=== PATIENT | female | born 1970 | race Two or more races ===

== ENCOUNTER → 2017-03-09 | Day surgery (SDC) | payer OTHER ==
[~2017-03-09] MED LIST: CALCIUM 500+D1 EACH PO; HYDROXYCHLOROQ200 MG PO; LIDOCAINE HCL 2% LOCAL INJ 5 ML SDV VIAL INJ ONE; MIDAZOLAM HCL 2 MG/2 ML VIAL ONE; PROPOFOL IV EMULSION 10 MG/ML 50 ML VIAL ONE; VITAMIN B-121000 MCG PO
== END | disposition home or self-care (01) ==
LOC: OR 08:31
PROVIDERS: ATTEND Internal Medicine Gastroenterology
DX: K50.90 Crohn's disease, unspecified, without complications (principal); D12.0 Benign neoplasm of cecum; D12.4 Benign neoplasm of descending colon; K57.30 Diverticulosis of large intestine without perforation or abscess without bleeding; K64.2 Third degree hemorrhoids; M32.9 Systemic lupus erythematosus, unspecified; B18.1 Chronic viral hepatitis B without delta-agent; R03.0 Elevated blood-pressure reading, without diagnosis of hypertension; F17.210 Nicotine dependence, cigarettes, uncomplicated
CPT/HCPCS: 45384; 81025; J2001; J2250

== ENCOUNTER → 2017-05-07 | Outpatient (CLI) | payer OTHER ==
[~2017-05-07] MED LIST changes: -LIDOCAINE HCL 2% LOCAL INJ 5 ML SDV VIAL INJ ONE; -MIDAZOLAM HCL 2 MG/2 ML VIAL ONE; -PROPOFOL IV EMULSION 10 MG/ML 50 ML VIAL ONE
--- NOTE | 2017-05-07 14:55 | Diagnostic Imaging Report ---
PROCEDURE: Frontal and lateral views of the chest. COMPARISON: None. INDICATIONS: ANNUAL CHECK UP AND IS A SMOKER FINDINGS: Lines/tubes: None. Lungs: The lungs are well inflated and clear. There is no evidence of pneumonia or pulmonary edema. Pleura: There is no pleural effusion or pneumothorax. Heart and mediastinum: The heart and the mediastinum are normal. Bones: No acute bony abnormality. Degenerative changes of the spine. IMPRESSION: 1. No acute cardiopulmonary disease. Dictated by: Juan Antonio Clement M.D. on 05/07/2017 at 14:55 Electronically approved by: Juan Antonio Clement M.D. on 05/07/2017 at 14:55
== END ==
LOC: RAD 14:19
PROVIDERS: ATTEND Internal Medicine
DX: Z00.00 Encounter for general adult medical examination without abnormal findings (principal)
CPT/HCPCS: 71046

== ENCOUNTER → 2017-10-29 | Outpatient (CLI) | payer OTHER | LOC: MAMMO 09:46 | PROVIDERS: ATTEND Obstetrics & Gynecology Obstetrics | DX: Z12.31 Encounter for screening mammogram for malignant neoplasm of breast (principal) | CPT/HCPCS: 77067 ==

== ENCOUNTER → 2018-03-22 | Day surgery (SDC) | payer OTHER ==
[~2018-03-22] MED LIST changes: +CALCIUM PO; +FENTANYL CITRATE/PF 100MCG/2 ML INJ ONE; +LISINOPRIL2.5 MG PO; +MIDAZOLAM HCL 2 MG/2 ML VIAL ONE; +ONDANSETRON HCL INJ 2MG/ML 2ML 2 MG/ML VIAL ONE; +PROPOFOL IV EMULSION 10 MG/ML 50 ML VIAL ONE; +VITAMIN D31000 UNI1 PO
--- OUTSIDE RECORDS SUMMARY | 2018-03-22 09:09 | XMS REPORT | Summary of Care ---
Author Author [facility] Outpatient Imaging [facility] Outpatient [facility] Address Unknown Phone Unavailable Encounter HQ Encntr_alias(FIN) [id number] Date(s): 05/28/15 - 05/28/15 [facility] Outpatient Imaging [facility] [address] [address] [facility], [address] [phone] Discharge Disposition: Home Attending Physician: Josh Lujan DDS, MD Vital Signs No data available for this section Problem List No data available for this section Allergies, Adverse Reactions, Alerts No data available for this section Medications No data available for this section Results No data available for this section Immunizations No data available for this section Procedures No data available for this section Social History No data available for this section Assessment and Plan No data available for this section
--- OUTSIDE RECORDS SUMMARY | 2018-03-22 09:10 | XMS REPORT | Summary of Care ---
Author Author [facility] Organization [facility] Address Unknown Phone Unavailable Encounter HQ Bellелена(FIN) [id number] Date(s): 05/31/17 - 05/31/17 [facility] [address] [place] [address]- Encounter Diagnosis Peripheral vascular disease, unspecified (Final) - 06/07/17 Other specified disorders of bone density and structure, other site (Final) - Other specified disorders of bone density and structure, left thigh (Final) - Occlusion and stenosis of bilateral carotid arteries (Final) - Discharge Disposition: Home or Self Care Attending Physician: Gomez Stone MD Referring Physician: Gomez Stone MD Vital Signs Most recent to 1 oldest [Reference Range]: Height 160.02 cm (05/31/17 10:29 AM) Weight 58.636 kg (05/31/17 10:29 AM) Body Mass Index 22.9 m2 (05/31/17 10:29 AM) Problem List No data available for this section Allergies, Adverse Reactions, Alerts Substance Reaction Severity Status NKDA Active Medications No data available for this section Results No data available for this section Immunizations No data available for this section Procedures No data available for this section Social History No data available for this section Assessment and Plan No data available for this section
--- OUTSIDE RECORDS SUMMARY | 2018-03-22 09:10 | XMS REPORT | Summary of Care ---
Author Author [facility] Out[facility] - [place] Organization [facility] [place] Address Unknown Phone Unavailable Encounter HQ Encntr_alibilly(FIN) [id number] Date(s): 01/15/17 - 01/15/17 [facility] Outpatient [facility] - [place] [address] [phone] Discharge Disposition: Home or Self Care Attending Physician: Manjeet Andres MD Vital Signs No data available for [...]
--- OUTSIDE RECORDS SUMMARY | 2018-03-22 09:10 | XMS REPORT | Summary of Care ---
Author Author [facility] Organization [facility] Address Unknown Phone Unavailable Encounter HQ Blelелена(FIN) [id number] Date(s): 05/31/17 - 05/31/17 [facility] [address] [place] [address]- Encounter Diagnosis Peripheral vascular disease, unspecified (Final) [...]
--- OUTSIDE RECORDS SUMMARY | 2018-03-22 09:10 | XMS REPORT | Summary of Care ---
Author Author [facility] Outpatient Imaging [facility] Address Unknown Phone Unavailable Encounter HQ Bellevelina_tristanbilly(FIN) [id number] Date(s): 08/13/17 - 08/13/17 [facility] Outpatient Imaging [facility] [address] [address] [facility], [address] [place], [place] [address] [phone] Discharge Disposition: Home or Self Care Attending [...]
--- OUTSIDE RECORDS SUMMARY | 2018-03-22 09:10 | XMS REPORT ---
Author Author [facility] Address Unknown Phone Unavailable Care Team Providers Care Flap Presser Name Role Phone Rand LESLIE Unavailable Unavailable GABRIELA EAST Unavailable Unavailable Payers Payer Name Policy Type Policy Number Effective Date Expiration Date Problems This patient has no known problems. Allergies, Adverse Reactions, Alerts Allergy Name Allergy Type Status Severity Reaction(s) Onset Date Inactive Date Treating Clinician Comments No Known Drug Intolerances DA Active U 2002-07-27 00:00:00 No Known Contrast Allergies DA Active U 2002-07-27 00:00:00 No Known Drug Allergies DA Active U 2002-07-27 00:00:00 No Known Food Allergies DA Active U 2002-07-27 00:00:00 No Known Other Allergies DA Active U 2002-07-27 00:00:00 Medications This patient has no known medications. Results Test Description Test Time Test Comments Text Results Atomic Results Result Comments MAMMOGRAPHY DIGITAL SCR BILAT 2017-10-29 10:25:00 [place] [address] Patient Name: MINA MACIEL MR #: [id number] : 1970 Age/Sex: 47/F Req #: [id number] Adm Physician: Ordered by: YONI LESLIE M.D. Report #: [id number] Location: MAMMO Room/Bed: Procedure: MG/MAMMOGRAPHY DIGITAL SCR BILAT Exam Date: 10/29/17 Exam Time: 0955 REPORT STATUS: Signed #[id number] - MGSCRBIL #BILATERAL DIGITAL SCREENING MAMMOGRAM WITH CAD: 10/29/2017 CLINICAL: Routine screening. Comparison is made to exams dated: 10/05/2016 mammogram and 09/23/2015 mammogram - [facility]. The tissue of both breasts is extremely dense, which lowers the sensitivity of mammography. Current study was also evaluated with a Computer Aided Detection (CAD) system. No significant masses, calcifications, or other findings are seen in either breast. There has been no significant interval change. IMPRESSION: BENIGN There is no mammographic evidence of malignancy. A 1 year screening mammogram is recommended. The patient will be notified by letter of the results. Yenifer young/jeff:11/02/2017 10:37:39 Bookbinder Apprentice: Alethea CASAS(R)(M), [facility] letter sent: Normal Exam Mammogram BI-RADS: 2 Benign Dictated By: YENIFER PERLA MD 1037 Transcribed By: JEFF on 11/02/17 1037 COPY TO: YONI LESLIE M.D. CHEST 2 VIEWS [place] [address] Patient Name: MINA MACIEL MR #: [id number] : 1970 Age/Sex: 46/F Req #: [id number] Adm Physician: Ordered by: GABRIELA EAST MD Report #: [id number] Location: RAD Room/Bed: Procedure: [id number] DX/CHEST 2 VIEWS Exam Date: 05/07/17 Exam Time: 1435 REPORT STATUS: Signed PROCEDURE: Frontal and lateral views of the chest. COMPARISON: None. INDICATIONS: ANNUAL CHECK UP AND IS A SMOKER FINDINGS: Lines/tubes: None. Lungs: The lungs are well inflated and clear. There is no evidence of pneumonia or pulmonary edema. Pleura: There is no pleural effusion or pneumothorax. Heart and mediastinum: The heart and the mediastinum are normal. Bones: No acute bony abnormality. Degenerative changes of the spine. IMPRESSION: 1. No acute cardiopulmonary disease. Dictated by: Juan Antonio Peña M.D. on 05/07/2017 at 14:55 Electronically approved by: Juan Antonio Peña M.D. on 05/07/2017 at 14:55 Dictated By: JUAN ANTONIO PEÑA MD 1451 Transcribed By: CHIKIS on 05/07/17 1452 COPY TO: GABRIELA EAST MD
--- OUTSIDE RECORDS SUMMARY | 2018-03-22 09:10 | XMS REPORT | Summary of Care ---
Author Author [facility] [place] Organization [facility] [place] Address Unknown Phone Unavailable Encounter HQ Encntr_alias(FIN) [id number] Date(s): 10/25/15 - 10/25/15 [facility] Outpatient [facility] [place] [address] [phone] Discharge Disposition: Home or Self Care Attending Physician: Gaurav Ludwig DO Vital Signs No data available for this [...]
--- OUTSIDE RECORDS SUMMARY | 2018-03-22 09:10 | XMS REPORT | Summary of Care ---
Author Author [facility] Outpatient Imaging - [place] Organization [facility] Outpatient [facility] - [place] Address Unknown Phone Unavailable Encounter HQ Encntr_alias(FIN) [id number] Date(s): 12/10/15 - 12/10/15 [facility] Outpatient Imaging - [place] [address] [phone] Discharge Disposition: Home or Self Care Attending [...]
--- OUTSIDE RECORDS SUMMARY | 2018-03-22 09:10 | XMS REPORT | Summary of Care ---
Author Author [facility] Outpatient [facility] - [place] Organization [facility] [place] Address Unknown Phone Unavailable Encounter HQ Encntr_alias(FIN) [id number] Date(s): 06/12/16 - 06/12/16 [facility] Outpatient Imaging - [place] [address] [phone] Discharge Disposition: Home or Self Care Attending [...]
[2018-03-22 12:00] VITALS: BP 126/78
== END | disposition home or self-care (01) ==
LOC: OR 09:07
PROVIDERS: ATTEND Internal Medicine Gastroenterology
DX: K29.70 Gastritis, unspecified, without bleeding (principal); K21.0 Gastro-esophageal reflux disease with esophagitis; K44.9 Diaphragmatic hernia without obstruction or gangrene; K59.00 Constipation, unspecified; B18.1 Chronic viral hepatitis B without delta-agent; M32.9 Systemic lupus erythematosus, unspecified; F41.9 Anxiety disorder, unspecified; F17.200 Nicotine dependence, unspecified, uncomplicated; Z01.810 Encounter for preprocedural cardiovascular examination
CPT/HCPCS: 43239; 81025; 93005; J2250; J2405; J2704